=== PATIENT | male | born 1995 | race Hispanic/Latino ===

== ENCOUNTER 2021-09-08 10:50 | Emergency (ER) | payer MEDICARE ==
[~2021-09-08] VITALS: Ht 162.6 cm; Wt 68.0 kg
[2021-09-08 11:30] LABS: BASOPHILS % (AUTO) 0.2 % (0.0-5.0); EOSINOPHILS % (AUTO) 0.1 % (0.0-8.0); HEMATOCRIT 47.3 % (42-54); LYMPHOCYTES % (AUTO) 6.6 % (21.0-51.0); MEAN CORPUSCULAR HEMOGLOBIN 31.5 pg (27.0-33.0); MEAN CORPUSCULAR HGB CONC 34.9 g/dL (32.0-36.0); MEAN CORPUSCULAR VOLUME 90.4 fL (79-99); MONOCYTES % (AUTO) 7.6 % (3.0-13.0); NEUTROPHILS % (AUTO) 84.9 % (40.0-77.0); PLATELET COUNT (AUTO) 270 K/uL (130-400); RED BLOOD CELL COUNT(AUTO) 5.23 MIL/uL (4.50-6.20); RED CELL DISTRIBUTION WIDTH 11.8 % (11.0-15.5); WHITE BLOOD COUNT (AUTO) 15.3 K/uL (4.8-10.8)
[2021-09-08 11:43] LABS: POTASSIUM 3.4 mmol/L (3.5-5.1)
[2021-09-08 11:47] LABS: ALBUMIN 4.4 g/dL (3.5-5.0); BILIRUBIN,TOTAL 0.3 mg/dL (0.2-1.0); TOTAL PROTEIN, SERUM 7.9 g/dL (6.0-8.3)
[2021-09-08] MEDS ORDERED: OCTYL 2-CYANOACRYLATE 1 EACH TP SCH (12:00)
[2021-09-08] MEDS ORDERED: OCTYL 2-CYANOACRYLATE 1 EACH TP ONE (12:00)
[2021-09-08 12:02] LABS: APPEARANCE,URINE TURBID (CLEAR); BILIRUBIN,URINE NEGATIVE (NEGATIVE); COLOR,URINE YELLOW (YELLOW); GLUCOSE, URINE (UA) NEGATIVE (NEGATIVE); KETONES,URINE NEGATIVE (NEGATIVE); LEUKOCYTE ESTERASE ,URINE NEGATIVE (NEGATIVE); NITRATE,URINE NEGATIVE (NEGATIVE); OCCULT BLOOD,URINE NEGATIVE (NEGATIVE); PROTEIN,URINE NEGATIVE (NEGATIVE); UROBILINOGEN,URINE 0.2 mg/dL (0.2-1.0)
[2021-09-08 12:07] LABS: BACTERIA,URINE Few /HPF (None Seen); RBC,URINE None Seen /HPF (0-1); WBC,URINE 0-1 /HPF (0-1)
[2021-09-08 12:08] LABS: AMORPHOUS SEDIMENT,UR Few /LPF (None Seen); SQUAMOUS EPITHELIAL CELL,UR Rare /HPF (0-2); URIC ACID CRYSTALS,URINE Moderate /LPF (None Seen)
[2021-09-08 12:18] VITALS: BP 116/72
== END 2021-09-08 13:11 | disposition home or self-care (01) ==
LOC: EDH 10:50
DX: S01.111A Laceration without foreign body of right eyelid and periocular area, initial encounter (principal); R56.9 Unspecified convulsions; F84.0 Autistic disorder; Z90.89 Acquired absence of other organs; W19.XXXA Unspecified fall, initial encounter; Y93.89 Activity, other specified; Y92.89 Other specified places as the place of occurrence of the external cause; Y99.8 Other external cause status
CPT/HCPCS: 12011; 36415; 70450; 80053; 81001; 85025

== ENCOUNTER 2022-07-19 15:42 | Emergency (ER) | payer MEDICARE ==
[~2022-07-19] VITALS: Ht 167.6 cm; Wt 86.2 kg
[2022-07-19 15:58] VITALS: BP 138/86
[2022-07-19 17:26] LABS: BASOPHILS % (AUTO) 0.2 % (0.0-5.0); EOSINOPHILS % (AUTO) 0.1 % (0.0-8.0); HEMATOCRIT 45.3 % (42-54); LYMPHOCYTES % (AUTO) 3.1 % (21.0-51.0); MEAN CORPUSCULAR HEMOGLOBIN 31.8 pg (27.0-33.0); MEAN CORPUSCULAR HGB CONC 34.7 g/dL (32.0-36.0); MEAN CORPUSCULAR VOLUME 91.7 fL (79-99); MONOCYTES % (AUTO) 4.5 % (3.0-13.0); NEUTROPHILS % (AUTO) 91.6 % (40.0-77.0); PLATELET COUNT (AUTO) 249 K/uL (130-400); RED BLOOD CELL COUNT(AUTO) 4.94 MIL/uL (4.50-6.20); RED CELL DISTRIBUTION WIDTH 12.1 % (11.0-15.5)
[2022-07-19 17:41] LABS: CREATININE 1.5 mg/dL (0.5-1.5); POTASSIUM 3.7 mmol/L (3.5-5.1)
[2022-07-19 17:45] LABS: ALBUMIN 4.4 g/dL (3.5-5.0)
[2022-07-19 18:03] LABS: APPEARANCE,URINE CLEAR (CLEAR); BILIRUBIN,URINE NEGATIVE (NEGATIVE); COLOR,URINE LIGHT-YELLOW (YELLOW); GLUCOSE, URINE (UA) NEGATIVE (NEGATIVE); KETONES,URINE 20 mg/dL (NEGATIVE); LEUKOCYTE ESTERASE ,URINE NEGATIVE Leu/uL (NEGATIVE); NITRATE,URINE NEGATIVE (NEGATIVE); OCCULT BLOOD,URINE LARGE (NEGATIVE); PH,URINE 6.5 (5.0-8.0); PROTEIN,URINE 10 mg/dL (NEGATIVE); UROBILINOGEN,URINE 0.2 mg/dL (0.2-1.0)
[2022-07-19 18:39] LABS: MUCUS,URINE RARE LPF (None Seen); RBC,URINE TNTC /HPF (0-1); SQUAMOUS EPITHELIAL CELL,UR RARE /HPF (0-2); WBC,URINE 0-1 /HPF (0-1)
[2022-07-19] MEDS ORDERED: 0.9%NACL 1000ML 1,000 ML IV ONE (19:00)
[2022-07-19] MEDS ORDERED: ONDANSETRON 4MG INJ IVP ONE (19:00)
[2022-07-19] MEDS ORDERED: MORPHINE 2 MG SYG IVP ONE (19:00)
[2022-07-19] MEDS ORDERED: KETOROLAC 15MG/ML VIAL (15MG/ML) IV ONE (19:00)
[2022-07-19] MEDS ORDERED: IOHEXOL 350 MG/ML 100ML INFUS..BTL IV ONE (20:09)
[2022-07-19] MEDS ORDERED: ONDA4TAB10 PO (20:54)
[2022-07-19] MEDS ORDERED: ACET-2079 PO (20:54)
[2022-07-19] MEDS ORDERED: NAPR500T6 PO (20:54)
[2022-07-19] MEDS ORDERED: TAMS-1 PO (20:54)
== END 2022-07-19 21:08 | disposition home or self-care (01) ==
LOC: EDH 15:42
DX: N20.1 Calculus of ureter (principal); F84.0 Autistic disorder; Z90.89 Acquired absence of other organs
CPT/HCPCS: 99285; 80053; 83690; 85025; 81001; 36415; 74177; 96374; 96361; 96375; J7030; J2405; J1885; Q9967

== ENCOUNTER 2022-08-08 11:48 | Inpatient (IN) | payer MEDICARE ==
[~2022-08-08] VITALS: Ht 165.1 cm; Wt 70.8 kg
[~2022-08-08 11:48] MED LIST: ACET-2079 PO; NAPR500T6 PO; ONDA4TAB10 PO; TAMS-1 PO
[2022-08-08] MEDS ORDERED: ONDANSETRON 4MG INJ IVP ONE (13:00)
[2022-08-08] MEDS ORDERED: ACETAMINOPHEN 325 MG TAB PO ONE (13:00)
[2022-08-08] MEDS ORDERED: MORPHINE 4 MG SYG IVP ONE (13:00)
[2022-08-08] MEDS ORDERED: 0.9%NACL 1000ML 1,000 ML IV ONE (13:00)
[2022-08-08] MEDS ORDERED: PANTOPRAZOLE 40 MG/VIAL IVP ONE (13:00)
[2022-08-08] MEDS ORDERED: KETOROLAC 30MG VIAL (30MG/ML) IVP ONE (13:00)
[2022-08-08 13:06] LABS: BASOPHILS % (AUTO) 0.1 % (0.0-5.0); EOSINOPHILS % (AUTO) 0.1 % (0.0-8.0); HEMATOCRIT 40.6 % (42-54); LYMPHOCYTES % (AUTO) 9.9 % (21.0-51.0); MEAN CORPUSCULAR HEMOGLOBIN 31.9 pg (27.0-33.0); MEAN CORPUSCULAR HGB CONC 35.5 g/dL (32.0-36.0); MEAN CORPUSCULAR VOLUME 89.8 fL (79-99); MONOCYTES % (AUTO) 9.9 % (3.0-13.0); NEUTROPHILS % (AUTO) 79.6 % (40.0-77.0); PLATELET COUNT (AUTO) 252 K/uL (130-400); RED BLOOD CELL COUNT(AUTO) 4.52 MIL/uL (4.50-6.20); RED CELL DISTRIBUTION WIDTH 11.9 % (11.0-15.5); WHITE BLOOD COUNT (AUTO) 13.6 K/uL (4.8-10.8)
[2022-08-08 13:27] LABS: ALBUMIN 4.1 g/dL (3.5-5.0); CREATININE 1.5 mg/dL (0.5-1.5); POTASSIUM 3.2 mmol/L (3.5-5.1); TOTAL PROTEIN, SERUM 6.6 g/dL (6.0-8.3)
[2022-08-08 13:28] LABS: APPEARANCE,URINE CLEAR (CLEAR); BILIRUBIN,URINE NEGATIVE (NEGATIVE); COLOR,URINE YELLOW (YELLOW); GLUCOSE, URINE (UA) NEGATIVE (NEGATIVE); KETONES,URINE 20 mg/dL (NEGATIVE); LEUKOCYTE ESTERASE ,URINE NEGATIVE Leu/uL (NEGATIVE); NITRATE,URINE NEGATIVE (NEGATIVE); OCCULT BLOOD,URINE NEGATIVE (NEGATIVE); PROTEIN,URINE 20 mg/dL (NEGATIVE); UROBILINOGEN,URINE 3 mg/dL (0.2-1.0)
[2022-08-08 13:37] LABS: MUCUS,URINE RARE LPF (None Seen); RBC,URINE 0-1 /HPF (0-1); SQUAMOUS EPITHELIAL CELL,UR RARE /HPF (0-2)
[2022-08-08] MEDS ORDERED: IOHEXOL 350 MG/ML 100ML INFUS..BTL IV ONE (14:01)
[2022-08-08] MEDS ORDERED: LACO150T2 PO (16:15)
[2022-08-08] MEDS ORDERED: ZONI100C87 PO (16:15)
[2022-08-08] MEDS ORDERED: NAPR500T6 PO (16:15)
[2022-08-08] MEDS ORDERED: ACETAMINOPHEN 325 MG TAB PO PRN (16:30)
[2022-08-08] MEDS ORDERED: ONDANSETRON 4MG INJ IVP PRN (16:30)
[2022-08-08] MEDS ORDERED: ACETAMINOPHEN WITH CODEINE 1 TAB TAB PO PRN (17:30)
[2022-08-08] MEDS: 0.9%NACL 1000ML 1,000 ML IV SCH (17:34)
[2022-08-08] MEDS: CEFTRIAXONE 1G VIAL IVP SCH (17:34)
[2022-08-08] MEDS: ZONISAMIDE 100 MG CAP PO SCH (20:49)
[2022-08-08 23:53] VITALS: BP 120/76
[2022-08-09] MEDS: ACETAMINOPHEN WITH CODEINE 1 TAB TAB PO PRN ×3 (03:41→15:52)
[2022-08-09 04:00] VITALS: BP 127/85
[2022-08-09 06:38] LABS: BASOPHILS % (AUTO) 0.3 % (0.0-5.0); EOSINOPHILS % (AUTO) 0.4 % (0.0-8.0); HEMATOCRIT 40.2 % (42-54); LYMPHOCYTES % (AUTO) 9.2 % (21.0-51.0); MEAN CORPUSCULAR HEMOGLOBIN 31.6 pg (27.0-33.0); MEAN CORPUSCULAR HGB CONC 34.1 g/dL (32.0-36.0); MEAN CORPUSCULAR VOLUME 92.8 fL (79-99); MONOCYTES % (AUTO) 11.1 % (3.0-13.0); NEUTROPHILS % (AUTO) 78.4 % (40.0-77.0); PLATELET COUNT (AUTO) 220 K/uL (130-400); RED BLOOD CELL COUNT(AUTO) 4.33 MIL/uL (4.50-6.20); RED CELL DISTRIBUTION WIDTH 11.9 % (11.0-15.5); WHITE BLOOD COUNT (AUTO) 15.3 K/uL (4.8-10.8)
[2022-08-09 06:54] LABS: ALBUMIN 3.3 g/dL (3.5-5.0); CREATININE 1.4 mg/dL (0.5-1.5); POTASSIUM 3.6 mmol/L (3.5-5.1); TOTAL PROTEIN, SERUM 5.9 g/dL (6.0-8.3)
[2022-08-09 07:04] LABS: MAGNESIUM 1.9 mg/dL (1.80-2.40)
[2022-08-09 08:00] VITALS: BP 115/76
[2022-08-09] MEDS: TAMSULOSIN HCL 0.4 MG CAP.ER.24H PO SCH (08:11)
[2022-08-09] MEDS: FAMOTIDINE 20MG VIAL IV SCH (08:11)
[2022-08-09] MEDS: 0.9%NACL 1000ML 1,000 ML IV SCH ×2 (09:31→19:10)
[2022-08-09 11:13] VITALS: BP 126/80
[2022-08-09 16:00] VITALS: BP 117/70
[2022-08-09] MEDS: CEFTRIAXONE 1G VIAL IVP SCH (17:41)
[2022-08-09 20:00] VITALS: BP 108/58
[2022-08-09] MEDS: ZONISAMIDE 100 MG CAP PO SCH (20:54)
[2022-08-09 23:39] VITALS: BP 111/65
[2022-08-10 03:52] VITALS: BP 110/59
[2022-08-10 05:22] LABS: INR 1.02 (0.85-1.15); PROTHROMBIN TIME 11.1 SEC (9.6-11.6)
[2022-08-10 05:24] LABS: PARTIAL THROMBOPLASTIN TIME 29.6 SEC (26.3-35.5)
[2022-08-10 07:25] VITALS: BP 118/66
[2022-08-10] MEDS ORDERED: LACOSAMIDE 200 MG/20 ML VIAL IV SCH (08:00)
[2022-08-10] MEDS: PHARMACY COMMUNICATION MISC SCH ×2 (08:00→09:00)
[2022-08-10] MEDS ORDERED: LACOSAMIDE IV SCH ×3 (08:30→21:00)
[2022-08-10] MEDS ORDERED: [UNRECOGNIZED DRUG - OTHER] IV SCH ×2 (08:30→21:00)
[2022-08-10] MEDS: 0.9%NACL 1000ML 1,000 ML IV SCH ×2 (08:30→21:25)
[2022-08-10] MEDS ORDERED: COMPOUND NARC IV MISC 1 EACH IVSOLN MISC PRN (09:00)
[2022-08-10] MEDS: FAMOTIDINE 20MG VIAL IV SCH (09:10)
[2022-08-10 09:11] LABS: HEMATOCRIT 37.7 % (42-54); MEAN CORPUSCULAR HEMOGLOBIN 32.3 pg (27.0-33.0); MEAN CORPUSCULAR HGB CONC 34.7 g/dL (32.0-36.0); MEAN CORPUSCULAR VOLUME 93.1 fL (79-99); RED BLOOD CELL COUNT(AUTO) 4.05 MIL/uL (4.50-6.20); WHITE BLOOD COUNT (AUTO) 14.6 K/uL (4.8-10.8)
[2022-08-10 09:18] LABS: CREATININE 1.1 mg/dL (0.5-1.5); POTASSIUM 3.5 mmol/L (3.5-5.1)
[2022-08-10 09:21] LABS: ALBUMIN 2.9 g/dL (3.5-5.0); MAGNESIUM 1.9 mg/dL (1.80-2.40); TOTAL PROTEIN, SERUM 5.6 g/dL (6.0-8.3)
[2022-08-10] MEDS ORDERED: [UNRECOGNIZED DRUG - OTHER] IV SCH (10:30)
[2022-08-10] MEDS ORDERED: IOHEXOL 350 MG/ML 100ML INFUS..BTL IV ONE (10:53)
[2022-08-10 11:25] VITALS: BP 138/82
[2022-08-10] MEDS ORDERED: POTASSIUM CHLORIDE 10% ELIXIR 20 MEQ/15 ML UDCUP PO PRN (12:30)
[2022-08-10] MEDS ORDERED: POTASSIUM CHLORIDE 20MEQ/100ML 100 ML IV PRN (12:30)
[2022-08-10] MEDS ORDERED: LIDOCAINE HCL-MPF 1% 2ML VIAL IV PRN (12:30)
[2022-08-10] MEDS: TAMSULOSIN HCL 0.4 MG CAP.ER.24H PO SCH (13:21)
[2022-08-10] MEDS: KCL 20 MEQ ERTAB PO PRN ×2 (13:21→22:20)
[2022-08-10] MEDS: MAGNESIUM 2GM PREMIX 50ML 50 ML IV PRN (13:22)
[2022-08-10 15:25] VITALS: BP 125/76
[2022-08-10] MEDS: CEFTRIAXONE 1G VIAL IVP SCH (17:23)
[2022-08-10 19:57] VITALS: BP 112/61
[2022-08-10] MEDS: ZONISAMIDE 100 MG CAP PO SCH (21:00)
[2022-08-10 23:13] VITALS: BP 119/74
[2022-08-11 04:42] VITALS: BP 115/73
[2022-08-11 04:47] LABS: BASOPHILS % (AUTO) 0.2 % (0.0-5.0); EOSINOPHILS % (AUTO) 1.7 % (0.0-8.0); HEMATOCRIT 38.2 % (42-54); LYMPHOCYTES % (AUTO) 25.6 % (21.0-51.0); MEAN CORPUSCULAR HEMOGLOBIN 31.9 pg (27.0-33.0); MEAN CORPUSCULAR HGB CONC 34.3 g/dL (32.0-36.0); MEAN CORPUSCULAR VOLUME 92.9 fL (79-99); MONOCYTES % (AUTO) 10.8 % (3.0-13.0); NEUTROPHILS % (AUTO) 61.2 % (40.0-77.0); PLATELET COUNT (AUTO) 228 K/uL (130-400); RED BLOOD CELL COUNT(AUTO) 4.11 MIL/uL (4.50-6.20); RED CELL DISTRIBUTION WIDTH 12.1 % (11.0-15.5); WHITE BLOOD COUNT (AUTO) 9.6 K/uL (4.8-10.8)
[2022-08-11 05:20] LABS: ALBUMIN 2.9 g/dL (3.5-5.0); CREATININE 1.1 mg/dL (0.5-1.5); MAGNESIUM 2.2 mg/dL (1.80-2.40); POTASSIUM 3.8 mmol/L (3.5-5.1); TOTAL PROTEIN, SERUM 5.8 g/dL (6.0-8.3)
[2022-08-11 07:25] VITALS: BP 116/69
[2022-08-11] MEDS: FAMOTIDINE 20MG VIAL IV SCH (09:26)
[2022-08-11] MEDS: LACOSAMIDE IV SCH ×2 (09:26→21:00)
[2022-08-11] MEDS: [UNRECOGNIZED DRUG - OTHER] IV SCH ×2 (09:26→21:00)
[2022-08-11 11:25] VITALS: BP 136/82
[2022-08-11] MEDS: 0.9%NACL 1000ML 1,000 ML IV SCH (13:38)
[2022-08-11] MEDS: TAMSULOSIN HCL 0.4 MG CAP.ER.24H PO SCH (13:38)
[2022-08-11 15:25] VITALS: BP 122/70
[2022-08-11] MEDS: CEFTRIAXONE 1G VIAL IVP SCH (17:21)
[2022-08-11 20:05] VITALS: BP 115/64
[2022-08-11] MEDS: ZONISAMIDE 100 MG CAP PO SCH (21:00)
[2022-08-11 23:57] VITALS: BP 118/66
[2022-08-12] MEDS: 0.9%NACL 1000ML 1,000 ML IV SCH (01:45)
[2022-08-12 03:00] VITALS: BP 119/70
[2022-08-12 05:42] LABS: BASOPHILS % (AUTO) 0.3 % (0.0-5.0); EOSINOPHILS % (AUTO) 1.3 % (0.0-8.0); HEMATOCRIT 41.8 % (42-54); LYMPHOCYTES % (AUTO) 24.6 % (21.0-51.0); MEAN CORPUSCULAR HEMOGLOBIN 31.7 pg (27.0-33.0); MEAN CORPUSCULAR HGB CONC 33.5 g/dL (32.0-36.0); MEAN CORPUSCULAR VOLUME 94.8 fL (79-99); NEUTROPHILS % (AUTO) 65.4 % (40.0-77.0); PLATELET COUNT (AUTO) 256 K/uL (130-400); RED BLOOD CELL COUNT(AUTO) 4.41 MIL/uL (4.50-6.20); RED CELL DISTRIBUTION WIDTH 12.1 % (11.0-15.5); WHITE BLOOD COUNT (AUTO) 10.4 K/uL (4.8-10.8)
[2022-08-12 06:01] LABS: ALBUMIN 3.3 g/dL (3.5-5.0); MAGNESIUM 1.8 mg/dL (1.80-2.40); POTASSIUM 3.8 mmol/L (3.5-5.1); TOTAL PROTEIN, SERUM 6.5 g/dL (6.0-8.3)
[2022-08-12] MEDS: [UNRECOGNIZED DRUG - OTHER] IV SCH (08:20)
[2022-08-12] MEDS: LACOSAMIDE IV SCH (08:20)
[2022-08-12] MEDS: TAMSULOSIN HCL 0.4 MG CAP.ER.24H PO SCH (08:21)
[2022-08-12] MEDS: MAGNESIUM 2GM PREMIX 50ML 50 ML IV PRN (08:21)
[2022-08-12] MEDS: FAMOTIDINE 20MG VIAL IV SCH (08:21)
[2022-08-12] MEDS: KCL 20 MEQ ERTAB PO PRN (08:21)
[2022-08-12] MEDS ORDERED: CEFD300C3 PO (09:47)
[2022-08-12 12:04] VITALS: BP 118/76
== END 2022-08-12 12:00 | disposition home or self-care (01) | DRG 694 ==
LOC: EDH 11:48 → EDHIP 16:24 → 4DH 08-09 00:05 → 3DH 08-09 00:09
PROVIDERS: ADMIT Hospitalist; ATTEND Hospitalist
DX: N13.2 Hydronephrosis with renal and ureteral calculous obstruction (principal); F84.0 Autistic disorder; E86.0 Dehydration; N17.9 Acute kidney failure, unspecified; D72.829 Elevated white blood cell count, unspecified; G40.909 Epilepsy, unspecified, not intractable, without status epilepticus; Z79.899 Other long term (current) drug therapy
CPT/HCPCS: 36415; 74177; 74400; 76775; 80053; 81001; 83690; 83735; 85025; 85027; 85610; 85730; 86140; C1769; C1894; C9113; G0378; J0696; J1885; J2405; J3475; J3490; J7030; Q9967

== ENCOUNTER → 2022-09-28 | Outpatient (CLI) | payer MEDICARE ==
[~2022-09-28] MED LIST changes: -ACET-2079 PO; +CEFD300C3 PO; +LACO150T2 PO; +ZONI100C87 PO
== END | disposition home or self-care (01) ==
LOC: RAH 16:47
PROVIDERS: ATTEND Urology
DX: N20.0 Calculus of kidney (principal); M47.815 Spondylosis without myelopathy or radiculopathy, thoracolumbar region
CPT/HCPCS: 74018; 76100